=== PATIENT | female | born 1960 | race African-American/Black ===

== ENCOUNTER 2023-08-30 07:35 | Outpatient (CLI) | payer OTHER, SELFPAY ==
--- NOTE | ~2023-08-30 | CT_ITS ---
CT Scan of the Chest without Contrast: Clinical Indication: Lung cancer screening, smoking history Technique: Contiguous sections were acquired throughout the chest without intravenous contrast. Dose reduction technique was used on this scan by utilizing automated exposure control and iterative recon struction technique. The dose-length product (DLP) was 62.19 mGy-cm. Findings: There is no evidence of any significant mediastinal, hilar or axillary lymphadenopathy. The mediastin al soft tissues appear normal. There is no evidence of pleural or pericardial effusion. The lungs are clear. No pulmonary nodules or infiltrates are noted. Images through the upper abdomen reveal no abnormalities. Impression: Lung RADS 1: Negative. 12 month follow-up screening CT advised. Reviewed, dictated and finalized at location . PHONE COLLECTOR Impression: Lung RADS 1: Negative. 12 month follow-up screening CT advised.
== END 2023-08-30 07:36 | disposition home or self-care (01) ==
PROVIDERS: Visit Provider Internal Medicine Pulmonary Disease
DX: Z12.2 Encounter for screening for malignant neoplasm of respiratory organs (principal); Z87.891 Personal history of nicotine dependence
CPT/HCPCS: 71271

== ENCOUNTER 2023-12-03 12:19 | Emergency (ER) | payer OTHER, SELFPAY ==
[2023-12-03] VITALS (9 sets, daily range): BP systolic 135–159; BP diastolic 58–86; PULSE 59–69; RESP 14–20; TEMP 36.4–36.8; O2SAT 98–100
--- NOTE | ~2023-12-03 | XR_ITS ---
EXAMINATION: XR chest 2V DATE: 12/03/2023 13:16 INDICATION: Chest pain TECHNIQUE: AP and lateral views of the chest are obtained. COMPARISON: None available FINDINGS: The lungs are free of acute opacities. No pleural effusion or pneumothorax. The cardiomedia stinal silhouette is normal. There is mild thoracic spondylosis. There are 32 degrees of thoracic dex troscoliosis. IMPRESSION: 1. No acute cardiopulmonary abnormality. Reviewed, dictated and finalized at location B. RVISOR SAWMILL
--- NOTE | 2023-12-03 12:25 | ECG_ITS ---
Measurements Intervals [place] Rate: 67 P: 71 [place]: 164 QRS: 53 QRSD: 77 T: 53 QT: 431 QTc: 456 Interpretive Statements SINUS RHYTHM POSSIBLE LEFT ATRIAL ENLARGEMENT POSSIBLE LEFT VENTRICULAR HYPERTROPHY BASELINE WANDER- AVR, AVL, AVF BORDERLINE ECG NO PREVIOUS ECG AVAILABLE FOR COMPARISON Electronically Signed On 12-03-2023 12:49:25 ENVIRONMENTAL CONTROL ADMINISTRATOR by Daniel Chun D.O.
[2023-12-03 12:45] LABS: Basophils Percent Auto 0.6 % (0.2-1.2); Eosinophils Absolute Auto 0.1 K/mm3 (0-0.3); Eosinophils Percent Auto 0.9 % (0-4.4); Hemoglobin 12.8 g/dL (12.0-15.0); Immature Granulocyte Absolute 0.01 K/mm3 (0.00-0.031); Immature Granulocyte Percent A 0.2 % (0-0.5); Lymphocytes Absolute Auto 2.78 K/mm3 (0.9-3.2); Lymphocytes Percent Auto 43.1 % (18.3-44.2); Mean Corpuscular HGB Conc 31.2 g/dl (32-36); Mean Corpuscular Hemoglobin 27.2 pg (26-34); Mean Platelet Volume 10.4 fl (7.4-10.4); Monocytes Absolute Auto 0.7 K/mm3 (0.1-0.6); Monocytes Percent Auto 10.5 % (2.6-8.5); Neutrophils Absolute Auto 2.9 K/mm3 (1.3-6.7); Neutrophils Percent Auto 44.7 % (45.5-73.1); Platelet Count Result 208 k/mm3 (150-375); Red Blood Count 4.71 M/mm3 (4.2-5.4); Red Cell Distribution Width 13.7 % (11.5-14.5); White Blood Count 6.5 K/mm3 (4.5-10.0)
[2023-12-03 12:54] LABS: Prothrombin Time 13.4 Seconds (11.1-14.7)
[2023-12-03 12:55] LABS: Partial Thromboplastin Time 25.8 SECONDS (22.3-36.8)
[2023-12-03 12:56] LABS: Alanine Aminotransferase 17 U/L (6-35); Albumin Level 4.3 g/dL (3.5-5.1); Alkaline Phosphatase 60 U/L (38-126); Anion Gap 4 mmol/L (8-16); Aspartate Amino Transferase 28 U/L (14-36); Bilirubin,Total 0.8 mg/dL (0.2-1.3); Blood Urea Nitrogen 14 mg/dL (7-17); Calcium 9.8 mg/dL (8.4-10.2); Carbon Dioxide 30 mmol/L (22-30); Chloride 105 mmol/L (98-107); Estimated CRCL calculation 57 ml/min; Estimated Glomerular Filt Rate > 60; Glucose 93 mg/dL (65-110); Lipase 174 U/L (23-300); Potassium 4.1 mmol/L (3.4-5.0); Sodium 139 mmol/L (137-145)
[2023-12-03 13:07] LABS: Troponin I < 0.012 ng/mL (0.000-0.034)
--- NOTE | 2023-12-03 13:33 | ED.CHESTPAIN ---
HPI - Chest Pain General Chief Complaint: Chest Pain Stated Complaint: chest pain Time Seen by Provider: 12/03/23 13:20 Source: patient and family () Mode of arrival: ambulatory Limitations: no limitations History of Present Illness HPI narrative: Patient presents with left sided chest pain that started this morning. Unsure if it awoke her versus present upon awakening. Worse with inspiration and movement. It wraps around her lateral chest towards her back. Has not noticed any rash. No shortness of breath. No cardiac history though has undergone a stress test in the last 2 years that was reportedly normal. She notes an occasional cough though attributes that to smoking; no change from usual. No fevers or lower extremity edema. Pain described as 7 out of 10 in severity, achy. Has not yet taken anything for pain. Took her BP medications (losartan and amlodipine) and 81mg aspirin. Has been told high cholesterol but not on medication. Father had an TX at age 63. Also takes famotidine. Saw a prevention coordinator once for cough; no PFTs performed and she wasn't explicitly told she was diagnosed with COPD but this was on her paperwork later so unclear. No history TIA/CVA, PAD, obesity, prior TX/PCI. PCP = Raven Jennings Related Data Allergies Allergy/AdvReac Type Severity Reaction Status Date / Time No Known Allergies Allergy Unverified 11/03/18 17:46 PMFSH Past Medical History Medical History COPD (chronic obstructive pulmonary disease) equivocal; on paperwork after seeing prevention coordinator but never explicitly told and no PFTs History of shingles History of stress test 2021 Hypercholesterolemia Hypertension Family History Family History Father Cancer Acute myocardial infarction, Onset Age: 63 Social History Social History Smoking packs per day: 0.5 Smoking cigarettes per day: 10.0 Living arrangements: with family Additional living arrangements comments: / Exam Narrative: GENERAL: Well-appearing, well-nourished, and in no acute distress. HEAD: Normocephalic, atraumatic. EYES: Non injected, non icteric ENT: Nares clear, no rhinorrhea or epistaxis. NECK: Supple. CHEST: Clear to auscultation without wheezes, crackles, consolidation. No respiratory distress. HEART: Regular rate and rhythm. . ABDOMEN: Soft, nondistended. EXTREMITIES: Normal range of motion. No lower extremity edema. SKIN: Warm, dry, no rash, particularly along left chest (anterior/lateral/posterior) NEURO: No focal deficits. Alert and oriented x3. PSYCH: Normal mood and affect. Course Vital Signs Vital signs: Vital Signs Temperature 98.1 F 12/03/23 12:32 Pulse Rate 68 12/03/23 12:32 Respiratory Rate 17 12/03/23 12:32 Blood Pressure 136/75 12/03/23 12:32 Pulse Oximetry 99 12/03/23 12:32 Oxygen Delivery Room Air 12/03/23 12:32 Temperature 98.3 F 12/03/23 16:03 Pulse Rate 60 12/03/23 16:03 Respiratory Rate 18 12/03/23 16:03 Blood Pressure 142/80 H 12/03/23 16:03 Pulse Oximetry 100 12/03/23 16:03 Oxygen Delivery Room Air 12/03/23 12:32 MDM - Chest Pain MDM Narrative Medical decision making narrative: Patient presents with chest pain since this morning around the time of awakening. No shortness of breath. Occasional chronic cough without change, attributed to smoking history. In the ED she is afebrile with VS within normal limits. Can not apply PERC rule based on patient's age so will proceed with D-dimer given description of pleuritic nature of pain though not hypoxic or tachycardic. Initially reported as chest pain radiating to back but it is described more as a wrapping around her lateral chest thus lower likelihood of dissection; also well appearing. Consdiered shingles for this reason but no rash. Di
[2023-12-03 13:57] LABS: D Dimer 0.41 ug/mL (<0.48)
[2023-12-03 16:02] LABS: Troponin I < 0.012 ng/mL (0.000-0.034)
[2023-12-03] MEDS: ACETAMINOPHEN 500 MG TABLET 1000 MG PO (16:14)
[2023-12-03] MEDS: IBUPROFEN 600 MG TABLET PO (16:14)
== END 2023-12-03 16:27 | disposition home or self-care (01) ==
PROVIDERS: Emergency Medicine; Emergency Provider Student in an Organized Health Care Education/Training Program
DX: R07.9 Chest pain, unspecified (principal); J44.9 Chronic obstructive pulmonary disease, unspecified; E78.00 Pure hypercholesterolemia, unspecified; I10 Essential (primary) hypertension; F17.210 Nicotine dependence, cigarettes, uncomplicated; R94.31 Abnormal electrocardiogram [ECG] [EKG]
CPT/HCPCS: 36415; 71046; 80053; 83690; 84484; 85025; 85380; 85610; 85730; 93005; 99284; A9270